=== PATIENT | female | born 1990 | race African-American/Black ===

== ENCOUNTER 2016-11-02 23:27 | Emergency (ER) | payer OTHER ==
[~2016-11-02] VITALS: Ht 165.1 cm; Wt 81.7 kg
[~2016-11-02 23:27] MED LIST: ROBITUSSIN AC,T10 ML PO; VENTOLIN HFA18 GM IH; ZITHROMAX Z-PA250 MG PO
[2016-11-03] MEDS ORDERED: BIRTH CONTROL PO (01:03)
[2016-11-03] MEDS ORDERED: VENTOLIN HFA18 GM IH (01:13)
[2016-11-03] MEDS ORDERED: PREDNISONE20 MG PO (01:13)
[2016-11-03] MEDS ORDERED: NAPROSYN500 MG PO (01:13)
[2016-11-03] MEDS ORDERED: FLONASE16 G1 BOTH NARES (01:14)
[2016-11-03 01:19] VITALS: BP 136/68
== END 2016-11-03 01:20 | disposition home or self-care (01) ==
LOC: EME 23:27
DX: J20.8 Acute bronchitis due to other specified organisms (principal); J45.909 Unspecified asthma, uncomplicated; J06.9 Acute upper respiratory infection, unspecified; S29.012A Strain of muscle and tendon of back wall of thorax, initial encounter; X50.3XXA Overexertion from repetitive movements, initial encounter
CPT/HCPCS: 71020; 94640; 99281; 99284; J7512

== ENCOUNTER 2018-02-15 02:04 | Inpatient (IN) | payer OTHER ==
[2018-02-15] VITALS (36 sets, daily range): BP systolic 100–147; BP diastolic 56–100
[~2018-02-15] VITALS: Ht 162.6 cm; Wt 91.6 kg
[~2018-02-15 02:04] MED LIST changes: +BIRTH CONTROL PO; +FLONASE16 G1 BOTH NARES; +NAPROSYN500 MG PO; +PREDNISONE20 MG PO
[2018-02-15 03:37] LABS: BASOPHIL (%) 0.2 % (0-1); EOSINOPHIL (%) 0.5 % (0-5); EOSINOPHIL COUNT 0.1 K/uL (0-0.3); HEMATOCRIT 38.9 % (36.0-46.0); HEMOGLOBIN 13.4 G/DL (11.9-15.5); IMMATURE GRANULOCYTE (%) 0.8 % (0.0-0.7); LYMPHOCYTE (%) 24.7 % (15-42); LYMPHOCYTE COUNT 2.6 K/uL (1.0-2.8); MCHC 34.4 G/DL (30.0-36.0); MCV 84.2 FL (83-99); MONOCYTE (%) 4.8 % (3-12); MONOCYTE COUNT 0.5 K/uL (0-0.8); NEUTROPHIL COUNT 7.2 K/uL (1.8-6.4); PLATELET COUNT 198 K/uL (156-360); RBC DIS.WIDTH-CV 15.6 % (11.8-14.6); RBC DIS.WIDTH-SD 47.2 % (39-53); RED BLOOD COUNT 4.62 M/uL (3.80-5.20); WHITE BLOOD COUNT 10.5 K/uL (4.1-10.2)
[2018-02-15 03:50] LABS: CHLORIDE 109 mEq/L (99-109); POTASSIUM 3.8 mEq/L (3.7-5.4); SODIUM 138 mEq/L (136-147)
[2018-02-15 03:52] LABS: GLUCOSE 82 mg/dL (70-99)
[2018-02-15 03:54] LABS: TOTAL BILIRUBIN 0.5 mg/dL (0.0-1.0)
[2018-02-15 03:55] LABS: ALKALINE PHOSPHATASE 214 IU/L (3-129)
[2018-02-15 03:56] LABS: CREATININE 0.8 mg/dL (0.6-1.3); GFR ESTIMATE (CALCULATED) > 59 mL/min/
[2018-02-15 03:57] LABS: AST (GOT) 22 IU/L (2-34); UREA NITROGEN (BUN) 4 mg/dL (9-23)
[2018-02-15 03:58] LABS: ALT (GPT) 11 IU/L (3-49)
[2018-02-15 04:08] LABS: AMPHETAMINE NEGATIVE (500 ng/mL); BARBITURATES NEGATIVE (200 ng/mL); BENZODIAZEPINES NEGATIVE (150 ng/mL); BUPRENORPHINE NEGATIVE (10 ng/mL); COCAINE NEGATIVE (150 ng/mL); METHADONE NEGATIVE (200 ng/mL); METHAMPHETAMINE NEGATIVE (500 ng/mL); OPIATES (MORPHINE) NEGATIVE (100 ng/mL); OXYCODONE NEGATIVE (100 ng/mL); PHENCYCLIDINE NEGATIVE (25 ng/mL); PROPOXYPHENE NEGATIVE (300 ng/mL); THC CANNABINOIDS NEGATIVE (50 ng/mL); TRICYCLIC ANTIDEPRESSANTS NEGATIVE (300 ng/mL)
[2018-02-15 04:40] LABS: UR CREATININE CONCENTRATION 63.8 MG/DL
[2018-02-15] MEDS ORDERED: IBUPROFEN800 MG PO (19:32)
[2018-02-16 07:24] VITALS: BP 116/68
[2018-02-16 14:52] VITALS: BP 115/71
[2018-02-16 23:07] VITALS: BP 115/67
== END 2018-02-17 13:16 | disposition home or self-care (01) | DRG 775 ==
LOC: LDRP-OP 02:04 → 2WEST 02:05 → LDRP-OP 03-24 08:11
PROVIDERS: Nurse Practitioner
PROC: 10E0XZZ Delivery of Products of Conception, External Approach (ICD-10-PCS; principal; 2018-02-15)
PROC: 00HU33Z Insertion of Infusion Device into Spinal Canal, Percutaneous Approach (ICD-10-PCS; principal; 2018-02-15)
PROC: 0UQGXZZ Repair Vagina, External Approach (ICD-10-PCS; principal; 2018-02-15)
PROC: 3E0R3BZ Introduction of Anesthetic Agent into Spinal Canal, Percutaneous Approach (ICD-10-PCS; principal; 2018-02-15)
DX: O71.4 Obstetric high vaginal laceration alone (principal); O22.43 Hemorrhoids in pregnancy, third trimester; O76 Abnormality in fetal heart rate and rhythm complicating labor and delivery; O99.214 Obesity complicating childbirth; E66.9 Obesity, unspecified; Z68.34 Body mass index [BMI] 34.0-34.9, adult; Z3A.39 39 weeks gestation of pregnancy; Z37.0 Single live birth; O99.824 Streptococcus B carrier state complicating childbirth; J45.909 Unspecified asthma, uncomplicated; O99.52 Diseases of the respiratory system complicating childbirth; O69.1XX0 Labor and delivery complicated by cord around neck, with compression, not applicable or unspecified
CPT/HCPCS: 80053; 82570; 84156; 85025; C1755; J0595; J2540; J3010; J7120; Q0169